=== PATIENT | female | born 1995 | race Caucasian/White ===

== ENCOUNTER 2017-01-18 06:24 | Emergency (ER) | payer MEDICAID ==
[2017-01-18 06:39] VITALS: TEMP 97.2; O2SAT 100
[2017-01-18 07:46] LABS: APPEARANCE,URINE CLEAR; COLOR,URINE YELLOW; GLUCOSE, URINE (UA) NEGATIVE (NEGATIVE); KETONES,URINE NEGATIVE (NEGATIVE); NITRATE,URINE NEGATIVE (NEGATIVE); OCCULT BLOOD,URINE NEGATIVE (NEG-TRACE); PH,URINE 5.5
[2017-01-18 07:47] LABS: BILIRUBIN,URINE NEGATIVE (NEGATIVE); LEUKOCYTE ESTERASE ,URINE NEGATIVE (NEGATIVE); RBC,URINE NEGATIVE (0-3AV/HPF); UROBILINOGEN,URINE 0.2 (0.2-1.0 EU); WBC,URINE 0-2 (0-5AV/HPF)
[2017-01-18 08:35] VITALS: BP 102/60; PULSE 71; RESP 14
== END 2017-01-18 08:10 | disposition home or self-care (01) | DRG 781 ==
LOC: ED 06:24
DX: O26.892 Other specified pregnancy related conditions, second trimester (principal); R10.32 Left lower quadrant pain; Z3A.16 16 weeks gestation of pregnancy
CPT/HCPCS: 59025; 81001; 87088; 99283

== ENCOUNTER 2017-06-26 04:54 | Inpatient (IN) | payer OTHER ==
[2017-06-26] MEDS ORDERED: SODIUM CHLORIDE 0.9% 50 ML 25 ML IV PRN (05:00)
[2017-06-26] MEDS ORDERED: CITRIC ACID/SODIUM CITRATE SOL PO SCH (05:00)
[2017-06-26] MEDS: LACTATED RINGERS 1,000 ML IV SCH ×5 (05:15→20:48)
[2017-06-26] MEDS ORDERED: FENTANYL 100MCG/2ML SOL ONE (06:15)
[2017-06-26] MEDS ORDERED: OXYTOCIN 10000 MU/ML SOL ONE (06:15)
[2017-06-26] MEDS ORDERED: ONDANSETRON HCL 4 MG/2 ML SOL ONE (06:15)
[2017-06-26] MEDS ORDERED: PHENYLEPHRINE HYDROCHLORIDE 10 MG/ML SOL ONE (06:15)
[2017-06-26] MEDS ORDERED: LACTATED RINGERS 1,000 ML with OXYTOCIN 10000 MU/ML 20 MU IV ONE (07:05)
[2017-06-26 07:20] LABS: APPEARANCE,URINE Clear; BILIRUBIN,URINE NEGATIVE (NEGATIVE); COLOR,URINE Dark yellow; GLUCOSE, URINE (UA) NEGATIVE (NEGATIVE); KETONES,URINE NEGATIVE (NEGATIVE); LEUKOCYTE ESTERASE ,URINE NEGATIVE (NEGATIVE); NITRATE,URINE NEGATIVE (NEGATIVE); OCCULT BLOOD,URINE NEGATIVE (NEG-TRACE); PH,URINE 5.5
[2017-06-26 07:30] LABS: RBC,URINE NEGATIVE (0-3AV/HPF); WBC,URINE 0-1 (0-5AV/HPF)
[2017-06-26] MEDS ORDERED: WITCH HAZEL 1 EA PAD TOP PRN (07:47)
[2017-06-26] MEDS ORDERED: BISACODYL 10 MG SUP PR PRN (07:47)
[2017-06-26] MEDS ORDERED: FLEET ENEMA PR PRN (07:47)
[2017-06-26] MEDS ORDERED: METHYLERGONOVINE MALEATE 0.2 MG TAB PO PRN (07:47)
[2017-06-26] MEDS ORDERED: DIPHENHYDRAMINE 25 MG CAP PO PRN (07:47)
[2017-06-26] MEDS ORDERED: ONDANSETRON HCL 4 MG/2 ML SOL IV PRN (07:47)
[2017-06-26] MEDS ORDERED: BENZOCAINE/MENTHOL 1 SPR TOP PRN (07:47)
[2017-06-26] MEDS ORDERED: TEMAZEPAM 15MG 15 MG CAP PO PRN (07:47)
[2017-06-26] MEDS ORDERED: BUPIVACAINE HCL 0.25% MPF 10 ML SOL INFIL ONE (07:52)
[2017-06-26] MEDS: DOCUSATE SODIUM 100 MG SGL PO SCH ×2 (09:13→20:33)
[2017-06-26] MEDS ORDERED: CEFAZOLIN SODIUM 1 GM PDS ONE (11:36)
[2017-06-26] MEDS: KETOROLAC TROMETHAMINE 30 MG/ML SOL IV PRN ×2 (11:57→20:28)
[2017-06-26] MEDS: CEFAZOLIN (PREMIX) 1 GM 1 GM/50 ML SOL IV SCH ×2 (12:04→12:53)
[2017-06-26] MEDS: APAP/HYDROCODONE 325/5 TAB PO PRN ×2 (13:16→17:33)
[2017-06-27] MEDS: APAP/HYDROCODONE 325/5 TAB PO PRN ×4 (00:49→19:17)
[2017-06-27] MEDS: KETOROLAC TROMETHAMINE 30 MG/ML SOL IV PRN (04:31)
[2017-06-27] MEDS: LACTATED RINGERS 1,000 ML IV SCH ×2 (10:17→10:49)
[2017-06-27] MEDS ORDERED: FOLIC ACID 1 MG TAB PO SCH (10:18)
[2017-06-27] MEDS: [UNRECOGNIZED DRUG - REMARK] PO SCH (10:25)
[2017-06-27] MEDS: DOCUSATE SODIUM 100 MG SGL PO SCH ×2 (10:25→20:48)
[2017-06-27] MEDS ORDERED: MULTIVITAMIN2 1 EA TAB PO SCH (10:30)
[2017-06-27] MEDS: IBUPROFEN 600 MG TAB PO PRN (19:17)
[2017-06-28] MEDS: IBUPROFEN 600 MG TAB PO PRN ×3 (00:56→17:48)
[2017-06-28] MEDS: APAP/HYDROCODONE 325/5 TAB PO PRN ×5 (00:56→22:46)
[2017-06-28] MEDS: DOCUSATE SODIUM 100 MG SGL PO SCH ×2 (08:10→20:01)
[2017-06-28] MEDS: [UNRECOGNIZED DRUG - REMARK] PO SCH (08:11)
[2017-06-29] MEDS: IBUPROFEN 600 MG TAB PO PRN (08:41)
[2017-06-29] MEDS: APAP/HYDROCODONE 325/5 TAB PO PRN (08:41)
[2017-06-29] MEDS: DOCUSATE SODIUM 100 MG SGL PO SCH (08:41)
[2017-06-29 10:44] VITALS: BP 111/78; PULSE 90; RESP 20; TEMP 97.4; O2SAT 97
[2017-06-29] MEDS: [UNRECOGNIZED DRUG - REMARK] PO SCH (10:49)
== END 2017-06-29 10:35 | disposition home or self-care (01) | DRG 540 ==
LOC: OB 04:54 → EDSTATUS 06:45
PROVIDERS: ADMIT Family Medicine; ATTEND Family Medicine
PROC: 10D00Z1 Extraction of Products of Conception, Low, Open Approach (ICD-10-PCS; principal; 2017-06-26 07:00)
DX: O32.1XX0 Maternal care for breech presentation, not applicable or unspecified (principal); Z37.0 Single live birth; Z3A.39 39 weeks gestation of pregnancy
CPT/HCPCS: 36415; 59025; 81001; 85018; 99070; J0690; J1885; J2405; J2590; J3010; A6402